=== PATIENT | female | born 1990 | race Caucasian/White ===

== ENCOUNTER 2016-07-01 12:00 | Emergency (ER) | payer SELFPAY ==
[~2016-07-01] VITALS: Ht 165.1 cm; Wt 80.5 kg
[~2016-07-01 12:00] MED LIST: BACT800T5 PO; CLIN150 PO; HYDR-3533 PO; IBUP800T23 PO; SULF-154 PO
[2016-07-01 12:05] VITALS: BP 123/70; PULSE 117; RESP 18; TEMP 99.1; O2SAT 97
--- NOTE | 2016-07-01 12:10 | PD ---
Physical Exam Date Seen by Provider: July 01, 2016 Time Seen by Provider: 12:05 Narrative 25 YOWF C/O FEVER, BODY ACHES, MUSCLE ACHES. TMAX 102. SOME NAUSEA BUT NO VOMITING. NO MEDS TODAY VS NOTED WAITING FOR BED PLACEMENT [facility] Medical Record Reviewed: Yes Supervised Visit with ESTRADA: Enmanuel Fagan July 01, 2016 12:10
--- NOTE | 2016-07-01 12:14 | PD ---
HPI . Fever, chills, coughing, sore throat and body aches for one night Chief Complaint: Fever Time Seen by Provider: 12:14 Travel History International Travel<30 days: No Contact w/Intl Traveler<30days: No Traveled to known affect area: No History of Present Illness HPI A 25-year-old female with no significant past medical history here with complaints of fever, chills, coughing, sore throat and body aches for one night. Patient says she woke up with chills and shaking. She tells me her temperature was 102. She says she feels like she's been hit by something as her body is aching intensely. She denies any sick contacts. She is not up-to- date on her influenza vaccine. PFSH Past Medical History Anxiety: Yes Depression: Yes (POST ) Cancer: No Cardiovascular Problems: No Diminished Hearing: No Endocrine: No Genitourinary: No Immune Disorder: No Musculoskeletal: No Neurologic: No Psychiatric: No Reproductive: No Respiratory: No ?: Not LMP: 06/13/16 : 1 Para: 1 : 0 Past Surgical History Abdominal Surgery: Yes (C SECTION) Section: Yes (X1) Social History Alcohol Use: No Tobacco Use: Yes (/2 PPD) Substance Use: No Allergies-Medications (Allergen,Severity, Reaction): Coded Allergies: *MDRO Multi-Drug Resistant Organism (Verified Adverse Reaction, Unknown, ) MRSA (leg wound) - 03/01/2015 Reported Meds & Prescriptions Reported Meds & Active Scripts Active No Active Prescriptions or Reported Medications Review of Systems General / Constitutional: Positive: Fever, Chills Eyes: No: Visual changes HENT: Positive: Sore Throat, No: Headaches Cardiovascular: No: Chest Pain or Discomfort Respiratory: Positive: Cough, No: Shortness of Breath Gastrointestinal: No: Abdominal Pain Genitourinary: No: Urgency, Frequency, Dysuria, Dribbling Musculoskeletal: No: Pain Skin: No Rash Neurologic: No: Weakness Psychiatric: No: Depression Endocrine: No: Polydipsia Hematologic/Lymphatic: No: Easy Bruising Physical Exam Narrative GENERAL: AAO x 3, no acute distress, Well-nourished, well-developed patient. SKIN: Warm and dry. No visible rashes or bruising. HEAD: Normocephalic and atraumatic. EYES: No scleral icterus. No injection or drainage. EOM intact, PERRLA ENT: No nasal drainage noted. Mucous membranes pink. Airway patent. Moderate posterior pharynx erythema. TMs normal bilaterally. NECK: Supple, trachea midline. No JVD. No lymphadenopathy CARDIOVASCULAR: No murmurs, gallops, or rubs. Tachycardia on exam heart rate 114 RESPIRATORY: Breath sounds equally diminished bilaterally. No accessory muscle use. No rhonchi or rales. GASTROINTESTINAL: Abdomen soft, non-tender, nondistended. EXTREMITIES: No cyanosis or edema. BACK: Nontender without obvious deformity. No CVA tenderness. PSYCH: AAO x 3, normal affect. Data Data Last Documented VS Vital Signs Date Time Temp Pulse Resp B/P Pulse Ox O2 Delivery O2 Flow Rate FiO2 07/01/16 13:21 100.1 119 21 116/66 99 Orders Influenzae A/B Antigen (07/01/16 12:16) Group A Rapid Strep Screen (07/01/16 12:16) Chest, Pa & Lat (07/01/16 12:16) Strep Culture (Group A) (07/01/16 12:20) Acetaminophen (Tylenol) (07/01/16 13:30) MDM Medical Decision Making Medical Screen Exam Complete: Yes Emergency Medical Condition: Yes Medical Record Reviewed: Yes Differential Diagnosis influenza, viral syndrome, pneumonia, sinusitis Narrative Course This is a 25-year-old female presenting with multiple complaints. She appears to have possible influenza vs. viral syndrome, vs. pneumonia versus viral syndrome versus sinusitis. I will go ahead and swab her for influenza and rapid strep. She has decreased breath sounds; I will go ahead and check a chest x-ray to rule out any type of consolidation, although this can be from her smoking habits. I suspect a virus as the cause of her symptoms. Date/Time Procedure Status Source Growth 07/01/16 12:20 Group A Streptococcus Screen ([facility]) - Final Complete Throat 07/01/16 12:20 Influenza Types A,B Antigen ([facility]) - Final Complete Nasal Washing NEGATIVE FOR FLU A AND B ANTIGEN.... 07/01/16 12:20 Group A Streptococcus Screen Received Throat Pending All tests reviewed and negative. CXR negative. I suspect viral syndrome. I discussed with patient and recommend supportive care. I do not recommend antibiotics. I advised her to stay hydrated. Patient verbalized understanding of instructions, questions were answered, and thanked me for their care. I advised them if their condition worsens, please return to the nearest emergency room for further care. Diagnosis Primary Impression: Viral syndrome Patient Instructions: General Instructions Additional Instructions: Use [id number] Tylenol or Motrin as needed for pain and fever. You can try an [id number] cough suppressant such as Robitussin. Please return to emergency department if your symptoms return or worsen. Follow up with your primary care provider in the next 3-4 days. Scripts No Active Prescriptions or Reported Meds Disposition: 01 DISCHARGE HOME Condition: Stable Maryann Quick July 01, 2016 12:14
--- NOTE | 2016-07-01 13:12 | RADRPT ---
EXAM DATE/TIME: 07/01/2016 12:35 [facility] COMPARISON: No previous studies available for comparison. INDICATIONS : Patient has had fever, productive cough and short of breath since this morning. Patient is a smoker. MEDICAL HISTORY : None. SURGICAL HISTORY : None. ENCOUNTER: Initial ACUITY: 1 day PAIN SCORE: 0/10 LOCATION: Bilateral chest FINDINGS: PA and lateral views of the chest demonstrate the lungs to be symmetrically aerated without evidence of mass, infiltrate or effusion. The cardiomediastinal contours are unremarkable. Osseous structure s are intact. Surgical clips in the right upper bowel quadrant are characteristic of prior cholecyste ctomy. CONCLUSION: No acute cardiopulmonary process. Arturo Irwin MD on July 01, 2016 at 13:10 Board Certified Radiologist. This report was verified electronically.
[2016-07-01 13:21] VITALS: BP 116/66; PULSE 119; RESP 21; TEMP 100.1; O2SAT 99
[2016-07-01] MEDS ORDERED: ACETAMINOPHEN 325 MG TAB PO ONE (13:30)
== END 2016-07-01 13:32 | disposition home or self-care (01) ==
LOC: NEPK 12:00
DX: B34.9 Viral infection, unspecified (principal); R05 Cough; J02.9 Acute pharyngitis, unspecified; F17.210 Nicotine dependence, cigarettes, uncomplicated
CPT/HCPCS: 71020; 87081; 87804; 87880; 99283